=== PATIENT | female | born 1955 | race Caucasian/White ===

== ENCOUNTER → 2016-12-08 | Outpatient (CLI) | payer BC, OTHER | LOC: FIMAGING 09:35 | PROVIDERS: ATTEND Obstetrics & Gynecology Gynecology | DX: N95.0 Postmenopausal bleeding (principal) ==

== ENCOUNTER → 2017-03-03 | Outpatient (CLI) | payer OTHER | LOC: FIMAGING 11:51 | PROVIDERS: ATTEND Obstetrics & Gynecology Gynecology | DX: Z12.31 Encounter for screening mammogram for malignant neoplasm of breast (principal) | CPT/HCPCS: G0202 ==

== ENCOUNTER 2017-03-16 07:15 | Observation (INO) | payer OTHER ==
[2017-03-16] MEDS ORDERED: ceFAZolin 2 GM/DEXTROSE 100 ML IV ONE (11:09)
[2017-03-16] MEDS ORDERED: PHENAZOPYRIDINE HCL 200 MG TAB PO ONE (11:09)
[2017-03-16] MEDS ORDERED: PHENAZOPYRIDINE HCL 200 MG TAB ONE (11:13)
[2017-03-16] MEDS ORDERED: CEFAZOLIN 2 GM/DEXTROSE/100 ML BAG IV ONE (11:13)
[2017-03-16] MEDS ORDERED: LR 1,000 ML IV ONE (11:42)
--- NOTE | 2017-03-16 14:16 | POSTOPPROG ---
Post Op Note Date of Operation: 03/16/17 Surgeon: Moises Isabel Mechanical Developer Prover: Susanne Salguero Anesthesia: GET(General Endotracheal) Pre-op Diagnosis: Post menopausal bleeding, rectocele, stress incontinence Post-op Diagnosis: Same Procedure: Robtic hyst, BSO, rectocele repair, TOT sling, cysto Findings: Ureters function at end of case Inf/Abcess present in the surg proc area at time of surgery?: No EBL: Minimal Complications: None
[2017-03-16] MEDS ORDERED: BUPIVACAINE/EPI 0.5% 30 ML SDV ONE (14:26)
[2017-03-16] MEDS ORDERED: fentaNYL 100 MCG/2 ML INJ ONE ×3 (14:27→18:25)
[2017-03-16] MEDS ORDERED: PROPOFOL 200 MG/20 ML VIAL ONE (14:27)
[2017-03-16] MEDS ORDERED: MIDAZOLAM 2 MG/2 ML VIAL IVP ONE (14:27)
[2017-03-16] MEDS ORDERED: KETOROLAC 30 MG/1 ML SDV ONE (14:28)
[2017-03-16] MEDS ORDERED: ROCURONIUM 50 MG/5 ML VIAL ONE ×2 (14:28)
[2017-03-16] MEDS ORDERED: DEXAMETHASONE 4 MG/ML VIAL ONE (14:28)
[2017-03-16] MEDS ORDERED: ONDANSETRON 4 MG/2 ML VIAL ONE (14:28)
[2017-03-16] MEDS ORDERED: LIDOCAINE 2% 100 MG/5 ML SYR ONE (14:28)
--- NOTE | 2017-03-16 14:30 | PDANEPAE ---
ANE History of Present Illness abnormal uterine bleeding ANE Past Medical History - Cardiovascular History Hx Hypertension: No Hx Arrhythmias: No Hx Chest Pain: No Hx Coronary Artery / Peripheral Vascular Disease: No Hx CHF / Valvular Disease: No Hx Palpitations: No - Pulmonary History Hx COPD: No Hx Asthma/Reactive Airway Disease: No Hx Recent Upper Respiratory Infection: No Hx Oxygen in Use at Home: No Hx Sleep Apnea: No Sleep Apnea Screening Result - Last Documented: Negative - Neurologic History Hx Cerebrovascular Accident: No Hx Seizures: No Hx Dementia: No - Endocrine History Hx Diabetes: No - Renal History Hx Renal Disorders: No - Liver History Hx Hepatic Disorders: No - Neurological & Psychiatric Hx Hx Neurological and Psychiatric Disorders: No - Cancer History Hx Cancer: No - Congenital Disorder History Hx Congenital Disorders: No - GI History Hx Gastrointestinal Disorders: No - Other Health History Other Health History: NEG - Chronic Pain History Chronic Pain: No - Surgical History Prior Surgeries: FOOT SURGERY L. ANKLE SURGERY L. ECTOPIC PREG X3. TUMMY KATHIECK ANE Review of Systems - Exercise capacity METS (RN): 5 METS ANE Patient History - Allergies Allergies/Adverse Reactions: No Known Allergies Allergy (Verified 12/02/15 10:25) - Home Medications Home medications: home medication list seen and reviewed Home Medications: Aspirin [Aspirin 81mg (*)] 81 mg PO HS 05/28/15 [Last Taken 03/02/17] Cholecalciferol Vit D3 [Vitamin D3 (*)] 1,000 units PO DAILY 05/28/15 [Last Taken 03/02/17] Estradiol [Minivelle] 0.075 mg TD TUSA 05/28/15 [Last Taken 03/16/17 07:00] Levothyroxine [Synthroid 25 mcg (*)] 25 mcg PO DAILY06 05/28/15 [Last Taken 10/01 07:00] traZODone [traZODONE 100MG (*)] 100 mg PO HS 05/28/15 [Last Taken 03/15/17 20:45 ] Testosterone 15mg/Gm Cream 2 manuel TP DAILY 05/29/15 [Last Taken 03/16/17 07:00] Herbals/Supplements -Info Only 1 ea PO DAILY 02/21/17 [Last Taken 03/01/17] [place]-3 Fatty Acids/Fish Oil [[place] 3 1,000 mg Softgel] 2 each PO BIDMEAL [Last Taken 03/01/17] Progesterone, Micronized [Progesterone] 200 mg PO HS 02/21/17 [Last Taken 20:45] Rosuvastatin Calcium [Crestor 5mg] 5 mg PO HS 02/21/17 [Last Taken 03/15/17 20: 45] - NPO status NPO Since - Liquids (Date): 03/16/17 NPO Since - Liquids (Time): 09:15 NPO Since - Solids (Date): 03/15/17 NPO Since - Solids (Time): 22:00 - Anes Hx Anes Hx: no prior problems - Smoking Hx Smoking Status: Never smoked - Family Anes Hx Family Hx Anesthesia Complications: NEG ANE Labs/Vital Signs - Vital Signs Blood Pressure: 130/82 Heart Rate: 63 Respiratory Rate: 14 O2 Sat (%): 93 Height: 167.64 cm Weight: 68.946 kg ANE Physical Exam - Airway Neck exam: FROM Mallampati Score: Class 1 Mouth exam: normal dental/mouth exam - Pulmonary Pulmonary: no respiratory distress - Cardiovascular Cardiovascular: regular rate and rhythym - ASA Status ASA Status: II ANE Anesthesia Plan Anesthesia Plan: general endotracheal anesthesia
[2017-03-16] MEDS ORDERED: MIDAZOLAM 2 MG/2 ML VIAL ONE (14:33)
[2017-03-16] MEDS ORDERED: SUGAMMADEX SODIUM 200 MG/2 ML VIAL IVP ONE (14:37)
[2017-03-16] MEDS ORDERED: HYDROmorphONE/DILAUDID 2 MG/ML INJ ONE (15:11)
--- NOTE | 2017-03-16 15:18 | PDANEPAE ---
ANE Past Medical History - Cardiovascular History Hx Hypertension: No Hx Arrhythmias: No Hx Chest Pain: No Hx Coronary Artery / Peripheral Vascular Disease: No Hx CHF / Valvular Disease: No Hx Palpitations: No - Pulmonary History Hx COPD: No Hx Asthma/Reactive Airway Disease: No Hx Recent Upper Respiratory Infection: No Hx Oxygen in Use at Home: No Hx Sleep Apnea: No Sleep Apnea Screening Result - Last Documented: Negative - Neurologic History Hx Cerebrovascular Accident: No Hx Seizures: No Hx Dementia: No - Endocrine History Hx Diabetes: No - Renal History Hx Renal Disorders: No - Liver History Hx Hepatic Disorders: No - Neurological & Psychiatric Hx Hx Neurological and Psychiatric Disorders: No - Cancer History Hx Cancer: No - Congenital Disorder History Hx Congenital Disorders: No - GI History Hx Gastrointestinal Disorders: No - Other Health History Other Health History: NEG - Chronic Pain History Chronic Pain: No - Surgical History Prior Surgeries: FOOT SURGERY L. ANKLE SURGERY L. ECTOPIC PREG X3. MONI YU Review of Systems - Exercise capacity METS (RN): 5 METS ANE Patient History - Allergies Allergies/Adverse Reactions: No Known Allergies Allergy (Verified 12/02/15 10:25) - Home Medications Home Medications: Aspirin [Aspirin 81mg (*)] 81 mg PO HS 05/28/15 [Last Taken 03/02/17] Cholecalciferol Vit D3 [Vitamin D3 (*)] 1,000 units PO DAILY 05/28/15 [Last Taken 03/02/17] Estradiol [Minivelle] 0.075 mg TD TUSA 05/28/15 [Last Taken 03/16/17 07:00] Levothyroxine [Synthroid 25 mcg (*)] 25 mcg PO DAILY06 05/28/15 [Last Taken 10/01 07:00] traZODone [traZODONE 100MG (*)] 100 mg PO HS 05/28/15 [Last Taken 03/15/17 20:45 ] Testosterone 15mg/Gm Cream 2 manuel TP DAILY 05/29/15 [Last Taken 03/16/17 07:00] Herbals/Supplements -Info Only 1 ea PO DAILY 02/21/17 [Last Taken 03/01/17] [place]-3 Fatty Acids/Fish Oil [[place] 3 1,000 mg Softgel] 2 each PO BIDMEAL [Last Taken 03/01/17] Progesterone, Micronized [Progesterone] 200 mg PO HS 02/21/17 [Last Taken 20:45] Rosuvastatin Calcium [Crestor 5mg] 5 mg PO HS 02/21/17 [Last Taken 03/15/17 20: 45] - NPO status NPO Since - Liquids (Date): 03/16/17 NPO Since - Liquids (Time): 09:15 NPO Since - Solids (Date): 03/15/17 NPO Since - Solids (Time): 22:00 - Smoking Hx Smoking Status: Never smoked - Family Anes Hx Family Hx Anesthesia Complications: NEG ANE Labs/Vital Signs - Vital Signs Blood Pressure: 130/82 Heart Rate: 63 Respiratory Rate: 14 O2 Sat (%): 93 Height: 167.64 cm Weight: 68.946 kg
[2017-03-16] MEDS ORDERED: ACETAMINOPHEN 500 MG TAB PO PRN (15:46)
[2017-03-16] MEDS ORDERED: NALOXONE HCL 0.4 MG/ML INJ IVP PRN (15:46)
[2017-03-16] MEDS ORDERED: METOCLOPRAMIDE 10 MG/2 ML VIAL IVP PRN (15:46)
[2017-03-16] MEDS ORDERED: OXYCODONE/APAP 5/325 TAB PO PRN (15:46)
[2017-03-16] MEDS ORDERED: fentaNYL 100 MCG/2 ML INJ IVP PRN (15:46)
[2017-03-16] MEDS ORDERED: LR 500 ML IV PRN (15:46)
[2017-03-16] MEDS ORDERED: PROMETHAZINE HCL 25 MG/ML INJ IVP PRN ×2 (15:46→16:29)
[2017-03-16] MEDS ORDERED: ONDANSETRON 4 MG/2 ML VIAL IVP PRN ×2 (15:46→16:29)
[2017-03-16] MEDS ORDERED: HYDROCODONE/APAP 5/325 TAB PO PRN (16:29)
[2017-03-16] MEDS ORDERED: LR 1,000 ML IV SCH (16:30)
--- NOTE | 2017-03-16 16:37 | POSTANESTH ---
Post Anesthetic Evaluation Cardiovascular Status: Normal, Stable Respiratory Status: Normal, Stable Level of Consciousness/Mental Status: Can Participate in Eval Pain Control: Adequate, Prn Tx Ordered Nausea/Vomiting Control: Adequate, Prn Tx Ordered Complications Possibly Related to Anesthesia: None Noted
[2017-03-16] MEDS: HYDROmorphONE/DILAUDID 1 MG/ML SYR IVP PRN ×8 (16:39→23:09)
[2017-03-16] MEDS ORDERED: HYDROmorphONE/DILAUDID 1 MG/ML SYR ONE ×2 (16:48→17:14)
[2017-03-16] MEDS: DIAZEPAM 10 MG/2 ML SYR IVP PRN ×2 (17:15→17:31)
[2017-03-16] MEDS ORDERED: DIAZEPAM 10 MG/2 ML SYR ONE (17:15)
[2017-03-16] MEDS ORDERED: OPIUM/BELLADONNA ALKALO SUPP PR ONE ×2 (18:18→18:30)
[2017-03-16] MEDS ORDERED: traZODone 100 MG TAB PO SCH (21:00)
[2017-03-16] MEDS: SIMETHICONE 80 MG TAB CHEW PO SCH ×2 (21:59→22:07)
[2017-03-16] MEDS: KETOROLAC 30 MG/1 ML SDV IVP SCH (22:07)
[2017-03-16] MEDS: DOCUSATE SODIUM 100 MG CAP PO SCH (22:07)
[2017-03-16] MEDS ORDERED: KETOROLAC 30 MG/1 ML SDV IVP ONE (22:30)
--- NOTE | 2017-03-17 02:48 | GOP ---
[f rep st] OPERATIVE REPORT DATE OF OPERATION: 03/16/2017 SURGEON: Moises Isabel MD [employer] VESSEL: Susanne Salguero CFA. ANESTHESIA: General. PREOPERATIVE DIAGNOSIS: 1. Postmenopausal bleeding. 2. Symptomatic rectocele. 3. Uterine prolapse. 4. Stress urinary incontinence. POSTOPERATIVE DIAGNOSIS: 1. Postmenopausal bleeding. 2. Symptomatic rectocele. 3. Uterine prolapse. 4. Stress urinary incontinence. PROCEDURE PERFORMED: 1. Robotic-assisted total laparoscopic hysterectomy and bilateral salpingo-oophorectomy. 2. Bilateral uterosacral ligament colpopexy. 3. Rectocele repair. 4. Transobturator sling. 5. Cystoscopy. FINDINGS: SPECIMENS: Uterus, cervix, bilateral tubes and ovaries. ESTIMATED BLOOD LOSS: 30 mL. DESCRIPTION OF PROCEDURE: The patient was taken to the operating room, where she was identified. G eneral anesthesia was administered and found to be adequate. She was placed in the lithotomy positi on, and prepared and draped in normal sterile fashion. A Spears catheter was placed in her bladder. A VCare uterine manipulator was placed into the endometrial cavity and sutured to the cervix. A 1 cm incision was made at the superior margin of the umbilicus. The Veress needle with CO2 gas fl owing was advanced into the peritoneal cavity. The abdomen was then insufflated with carbon dioxide gas. The 12 mm trocar followed by the laparoscope were then inserted. The upper abdomen was unrem arkable. Two lateral ports were placed on the right, 1 on the left under direct visualization. The patient was then placed in Trendelenburg position and the da Ann robot docked on the left side. The instruments were then brought into the abdominal cavity under direct visualization. The patient had omental adhesions to the anterior abdominal wall. These were taken down sharply. T he uterus, tubes, and ovaries were grossly unremarkable. The left round ligament was divided. The anterior leaf of the broad ligament was incised to the bifurcation of the left common iliac vessels. A window was created in the posterior leaf to skeletonize the infundibulopelvic vessels. They wer e then cauterized and transected. The anterior leaf of the broad ligament was then incised over the left uterine vessels and across the cervix. The bladder was gently dissected off the cervix and up per vagina. The left uterine vasculature was then cauterized and transected. The exact same proced ure was performed on patient's right side. A circumferential colpotomy incision was then made with the hot celestino and the specimen removed through the vagina. The vaginal cuff was then closed with a running suture of 0 V-Loc 180. A bilateral uterosacral ligament colpopexy was performed by attachi ng the lateral aspects of the vaginal cuff to the ipsilateral uterosacral ligaments near their inser tion into the coccygeal-sacrospinous ligament complex. The pelvis was irrigated with sterile saline and hemostasis was present. The robot was then undocked. The fascia was closed with 0 Vicryl, ski n with 4-0 Monocryl and surgical adhesive. Attention was then turned to the sling portion of the procedure. A mid urethral incision was made w ith a scalpel. Tunnels were created bilaterally up to the obturator internus muscles. Skin incisio ns were made over the obturator notches. The halo trocar was placed through the left skin incision, redirected around the ischial pubic rami, and out through the vaginal incision using a vaginal fing er as a guide. The lateral sulci were examined and no evidence of vaginal injury had occurred. The sling was then attached and brought out along the same course. The exact same procedure was perfor med on patient's right side. The sling was then adjusted to allow a small mid urethral gap. The va ginal epithelium was closed with 2-0 Vicryl, skin with 4-0 Monocryl. Cystoscopy was then performed. Both ureters had vigorous jets of urine. No evidence of bladder, no r urethral injuries seen. No mesh, nor sutures were seen within the bladder, nor urethra. No obvio us pathology was seen. Attention was then turned to the rectocele repair. A transverse incision was made along the perinea l body. The posterior vaginal epithelium was undermined with the Metzenbaum scissors and incised sa gittally. The epithelium was then gently dissected off the underlying rectovaginal connective tissu e. The connective tissue was then plicated in the midline with multiple interrupted sutures of 0 Vi cryl. The excess epithelium was then trimmed. A perineorrhaphy was then performed by plicating the bulbous spongiosus and transverse perineal muscles also with 0 Vicryl. The epithelium was then allen sed with a running 0 Vicryl suture. Vaginal packing and the Spears catheter were then replaced. Ane sthesia was reversed, and the patient taken to the PACU awake, in stable condition. COMPLICATIONS: None. DISPOSITION: Patient stable to PACU. /[id number]/MODL
[2017-03-17] MEDS: HYDROmorphONE/DILAUDID 1 MG/ML SYR IVP PRN ×2 (03:40→09:54)
[2017-03-17] MEDS: KETOROLAC 30 MG/1 ML SDV IVP SCH ×3 (03:53→17:25)
[2017-03-17] MEDS ORDERED: LEVOTHYROXINE 25 MCG TAB PO SCH (06:00)
[2017-03-17 07:02] LABS: HEMOGLOBIN 12.6 g/dL (12.6-16.3)
[2017-03-17] MEDS: SIMETHICONE 80 MG TAB CHEW PO SCH ×2 (07:28→15:34)
[2017-03-17] MEDS: DOCUSATE SODIUM 100 MG CAP PO SCH (09:54)
[2017-03-17 10:02] VITALS: RESP 18
[2017-03-17 12:51] VITALS: BP 114/69; PULSE 69; TEMP 98.2; O2SAT 95
--- NOTE | 2017-03-17 14:08 | SOAPPROG ---
SOAP Progress Note Assessment/Plan: Assessment: Doing well. No issues. Plan: 03/17/17 14:07 Home Subjective: No complaints, pain controlled, ambulating, voiding, tolerating a general diet. Objective: Vital Signs Temp Pulse Resp BP Pulse Ox 36.8 C 69 18 114/69 95 03/17/17 12:00 03/17/17 12:00 03/17/17 12:00 03/17/17 12:00 03/17/17 12:00 Laboratory Results 03/17/17 06:35 03/16/17 03/17/17 03/18/17 05:59 05:59 05:59 Intake Total 2800 Output Total 1650 600 Balance 1150 -600 - Pending Discharge Pending Discharge Within 24 Hours: Yes Pending Discharge Date: 03/18/17 Pending Discharge Time: 11:00 Physical Exam - Physical Exam General Appearance: WD/WN, alert, no apparent distress Respiratory: lungs clear Cardiac/Chest: regular rate, rhythm Abdomen: normal bowel sounds, non-tender, soft (Incisions clean, dry, and intact.) ICD10 Worksheet Patient Problems: Problems Problem Status Onset Post-menopausal bleeding Acute Rectocele Acute Acute mechanical low back pain, duration < 6 weeks Acute Back pain Acute - ICD10 Problem Qualifiers (1) Post-menopausal bleeding (2) Rectocele
--- NOTE | 2017-03-17 20:52 | GDS ---
[f rep st] DISCHARGE SUMMARY DISCHARGE DIAGNOSES: 1. Postmenopausal bleeding. 2. Rectocele. 3. Stress urinary incontinence. 4. Uterine prolapse. POSTOPERATIVE DIAGNOSES: 1. Postmenopausal bleeding. 2. Rectocele. 3. Stress urinary incontinence. 4. Uterine prolapse. PROCEDURES: 1. Robotic-assisted total laparoscopic hysterectomy, bilateral salpingo-oophorectomy. 2. Bilateral uterosacral ligament colpopexy. 3. Rectocele repair. 4. Transobturator sling. 5. Cystoscopy. HISTORY: The patient is a 61-year-old female with postmenopausal bleeding, a symptomatic rectocele and stress incontinence. She was taken to the operating room on 03/16/2017, where she underwent the above-mentioned procedures without complications. Her postoperative course was uneventful. The morning after surgery, she was ambulating, voiding, an d tolerating a general diet. She was discharged home on postoperative day #1 in good condition. Me dications included ibuprofen and Percocet for pain. She was to follow up in the office 2 weeks afte r discharge. /[id number]/MODL
== END 2017-03-17 16:00 | disposition home or self-care (01) ==
LOC: F3E 10:44 → FOB 19:01
PROVIDERS: ADMIT Obstetrics & Gynecology; ATTEND Obstetrics & Gynecology
PROC: 0UUG4JZ Supplement Vagina with Synthetic Substitute, Percutaneous Endoscopic Approach (ICD-10-PCS; principal; 2017-03-16 12:15)
PROC: 0DQP0ZZ Repair Rectum, Open Approach (ICD-10-PCS; principal; 2017-03-16 12:15)
PROC: 0UT7FZZ Resection of Bilateral Fallopian Tubes, Via Natural or Artificial Opening With Percutaneous Endoscopic Assistance (ICD-10-PCS; principal; 2017-03-16 12:15)
PROC: 8E0W8CZ Robotic Assisted Procedure of Trunk Region, Via Natural or Artificial Opening Endoscopic (ICD-10-PCS; principal; 2017-03-16 12:15)
PROC: 0UT2FZZ Resection of Bilateral Ovaries, Via Natural or Artificial Opening With Percutaneous Endoscopic Assistance (ICD-10-PCS; principal; 2017-03-16 12:15)
PROC: 0UT9FZZ Resection of Uterus, Via Natural or Artificial Opening With Percutaneous Endoscopic Assistance (ICD-10-PCS; principal; 2017-03-16 12:15)
PROC: 0TUC0JZ Supplement Bladder Neck with Synthetic Substitute, Open Approach (ICD-10-PCS; principal; 2017-03-16 12:15)
DX: N95.0 Postmenopausal bleeding (principal); D25.1 Intramural leiomyoma of uterus; N39.3 Stress incontinence (female) (male); N81.6 Rectocele; N81.10 Cystocele, unspecified; N81.2 Incomplete uterovaginal prolapse; Z79.890 Hormone replacement therapy; E78.5 Hyperlipidemia, unspecified
CPT/HCPCS: 57250; 57288; 57425; 58571; G0378; C1771; J0690; J1100; J1170; J1885; J2001; J2250; J2405; J2550; J2704; J3010

== ENCOUNTER → 2018-08-14 | Outpatient (CLI) | payer OTHER | LOC: CIMAGING 09:50 | PROVIDERS: ATTEND Obstetrics & Gynecology Gynecology | DX: Z12.31 Encounter for screening mammogram for malignant neoplasm of breast (principal); R92.8 Other abnormal and inconclusive findings on diagnostic imaging of breast ==

== ENCOUNTER → 2018-08-29 | Outpatient (CLI) | payer OTHER | LOC: BMCIMAGING 09:35 | PROVIDERS: ATTEND Obstetrics & Gynecology Gynecology | DX: R92.2 Inconclusive mammogram (principal) ==